=== PATIENT | female | born 1950 | race Caucasian/White ===

== ENCOUNTER 2020-01-20 00:33 | Outpatient (CLI) | payer MEDICARE, SELFPAY ==
[2020-01-20 19:01] LABS: SARS-CoV-2 RNA PCR Negative
== END 2020-01-20 00:34 | disposition home or self-care (01) ==
LOC: ANHCOVIDDT 00:36
PROVIDERS: PCP Internal Medicine; Visit Provider Internal Medicine Gastroenterology
DX: Z01.818 Encounter for other preprocedural examination (principal); Z11.59 Encounter for screening for other viral diseases
CPT/HCPCS: 87635; C9803; U0003

== ENCOUNTER 2020-01-22 03:43 | Day surgery (SDC) | payer MEDICARE, SELFPAY ==
[2020-01-15 10:49] VITALS: BMI 27.5
--- NOTE | 2020-01-22 08:10 | WPDANESEPPF ---
Anes - Initial Pre Proc Eval Procedure: Operation Date: 01/22/20 08:45 Proposed Procedures p Screening Colonoscopy - Quan Rivas MD Date/Time: 01/22/20 08:10 Surgeon: Quan Rivas MD Pre Op Diagnosis: Neoplasm Screening Patient Data Age: 70 Gender: F Height: 5 ft 1 in Weight: 66 kg Allergies Allergy/AdvReac Type Severity Reaction Status Date / Time Penicillins Allergy Mild Hives / Verified 01/22/20 08:10 Red Face Home Medications Medication Instructions Recorded Confirmed Type albuterol sulfate 90 mcg/actuation 1 inhalation INHALATION Q4H 12/31/19 01/15/20 History aerosol inhaler levothyroxine 50 mcg capsule 50 mcg PO DAILY 12/31/19 01/15/20 History zolmitriptan 5 mg tablet See Rx Instructions PO .COMPLEX 12/31/19 01/15/20 History peg 3350-electrolytes 236 240 ml PO Q10M #4000 ml 01/13/20 01/15/20 Rx gram-22.74 gram-6.74 gram-5.86 gram solution amitriptyline 25 mg PO DAILY 01/15/20 01/15/20 History Patient hx anesthesia problems: none Family hx anesthesia problems: none PMFSH Past Medical History Medical History Allergic rhinitis Anxiety Asthma Colon cancer screening Hypothyroid Major depressive disorder Migraine Noninfective gastroenteritis and colitis Osteoarthritis Senile cataract Thyrotoxicosis TIA (transient ischemic attack) Surgical History Surgical History (Updated 01/22/20 @ 08:12 by Baldemar Mcclelland MD) H/O: hysterectomy Anes - Eval Final PreProcedure Day of Procedure 01/22/20 08:10 Patient weight: overweight Heart: regular rate and rhythm Lungs: clear to auscultation Airway: Mallampati scale class II Neurological: alert and oriented Last oral intake: >/= 8 hours ASA classification: III Emergent: no Anesthetic plan: proceed Anesthesia type and monitoring: general GIVS and standard monitoring Informed Consent: The patient's anesthetic plan and its attendant risks and benefits were discussed with the patient/family/POA. Questions were solicited and answers provided to the satisfaction of the patient/family/POA.
[2020-01-22 08:11] VITALS: BMI 26.9
[2020-01-22] MEDS: LACTATED RINGERS 1,000 ML 150 ML IV CONT (08:24)
--- NOTE | 2020-01-22 08:25 | SUR.PREOP ---
pt notified of approx 20 min in delay start time.
--- NOTE | 2020-01-22 08:53 | WPDHPUPDATE1 ---
History and Physical Update Update Date/Time: 01/22/20 08:53 History and Physical has been reviewed, including an updated exam of the patient. There are NO changes in the patient's condition. Risks, benefits, and alternatives have been discussed and questions answered. Patient agrees to proceed with procedure.
[2020-01-22 09:34] VITALS: BP 116/69; PULSE 74; RESP 16; O2SAT 100
[2020-01-22 09:44] VITALS: BP 122/72; PULSE 75; RESP 20; O2SAT 98
[2020-01-22 09:54] VITALS: BP 133/70; PULSE 76; RESP 22; O2SAT 99
== END 2020-01-22 10:35 | disposition home or self-care (01) ==
PROVIDERS: PCP Internal Medicine; Visit Provider Internal Medicine Gastroenterology
PROC: 0DJD8ZZ Inspection of Lower Intestinal Tract, Via Natural or Artificial Opening Endoscopic (ICD-10-PCS; CPT 45378; principal; 2020-01-22 08:45)
DX: Z12.11 Encounter for screening for malignant neoplasm of colon (principal); D01.3 Carcinoma in situ of anus and anal canal; K64.4 Residual hemorrhoidal skin tags; K64.8 Other hemorrhoids; J45.909 Unspecified asthma, uncomplicated; E03.9 Hypothyroidism, unspecified; F41.8 Other specified anxiety disorders; Z86.73 Personal history of transient ischemic attack (TIA), and cerebral infarction without residual deficits
CPT/HCPCS: 45380; 87635; 88305; C9803; J2704; J7120; U0003

== ENCOUNTER 2020-04-20 11:25 | Emergency (ER) | payer MEDICARE, SELFPAY ==
[2020-04-20 11:35] VITALS: BP 97/54; PULSE 79; RESP 16; TEMP 36.8; O2SAT 97
--- NOTE | 2020-04-20 11:54 | ECG_ITS ---
Measurements Intervals [place] Rate: 75 P: 64 AR: 134 QRS: 3 QRSD: 78 T: 56 QT: 370 QTc: 414 Interpretive Statements SINUS RHYTHM NORMAL ECG Electronically Signed On 04-20-2020 12:47:05 CDT by Yo Johnson D.O.
--- NOTE | 2020-04-20 12:01 | ED.SYNCOPE ---
HPI - Syncope General Chief Complaint: Syncope Stated Complaint: CAT BITE Time Seen by Provider: 04/20/20 12:00 History of Present Illness HPI narrative: 70 yo female presents from home after being bitten by a cat. She was bitten on the left hand. Following the bite she breifly lost consiousness. She did not fall or sustain any additional injury. SHe has a h/o vasovagal syncope. Related Data Home Medications Medication Instructions Recorded Confirmed albuterol sulfate 90 mcg/actuation 1 inhalation INHALATION Q4H 12/31/19 01/29/20 aerosol inhaler levothyroxine 50 mcg capsule 50 mcg PO DAILY 12/31/19 01/29/20 zolmitriptan 5 mg tablet See Rx Instructions PO .COMPLEX 12/31/19 01/29/20 amitriptyline 25 mg PO DAILY 01/15/20 01/29/20 fexofenadine 60 mg tablet 60 mg PO Q12H 01/29/20 01/29/20 Allergies Allergy/AdvReac Type Severity Reaction Status Date / Time Penicillins Allergy Mild Hives / Verified 04/20/20 11:55 Red Face Review of Systems Review of Systems: All systems reviewed & are unremarkable except as noted in HPI and below Constitutional: Constitutional: Denies fever(s) and Denies weakness Cardiovascular: Cardiovascular: Denies chest pain Respiratory: Respiratory: Denies dyspnea Gastrointestinal: Gastrointestinal: Denies abdominal pain, Denies nausea and Denies vomiting Musculoskeletal: Musculoskeletal: Denies back pain Neurologic: Reports syncope, Denies numbness and Denies weakness [facility] Past Medical History Medical History Allergic rhinitis Anxiety Asthma Colon cancer screening Hypothyroid Major depressive disorder Migraine Noninfective gastroenteritis and colitis Osteoarthritis Senile cataract Stroke Thyrotoxicosis TIA (transient ischemic attack) Surgical History Surgical History H/O bilateral oophorectomy 1992 H/O removal of cyst H/O: hysterectomy 1989 Hx of tonsillectomy 1954 Family History Family History Other Alzheimer disease Heart disease Social History Social History Smoking status: Never smoker Alcohol intake: never Substance use: never Gender identity (if verbalized by the patient): Female Exam Const: General: healthy appearing, no acute distress and alert Orientation/consciousness: patient oriented x3 HENMT: Head: normal to inspection Neck: Neck: normal visual inspection and no lymphadenopathy Chest: Chest palpation & inspection: no tenderness Resp: Effort & Inspection: normal respiratory effort Auscultation: clear to auscultation bilaterally, no rales, no rhonchi and no wheezes Cardio: Jugular venous distension: no JVD Rate: regular rate Rhythm: regular rhythm Heart sounds: no murmurs GI: Inspection: non-distended GI Palp: Yes Soft to palpation and No Tenderness to palpation present (GI) Skin: Other: 2 cm laceration to the dorsum of left hand. 2 small punctures between second and third finger. Neuro: General: patient oriented x3 and moves all extremities Speech: normal speech Extrem: General: no edema Psych: Appearance: well kempt Affect: normal affect Course Vital Signs Vital signs: Vital Signs Temperature 36.8 C 04/20/20 11:35 Pulse Rate 79 04/20/20 11:35 Respiratory Rate 16 04/20/20 11:35 Blood Pressure 97/54 L 04/20/20 11:35 Pulse Oximetry 97 04/20/20 11:35 Temperature 36.8 C 04/20/20 11:35 Pulse Rate 78 04/20/20 13:36 Respiratory Rate 14 04/20/20 13:36 Blood Pressure 118/72 04/20/20 13:36 Pulse Oximetry 98 04/20/20 13:36 MDM - Syncope MDM Narrative Medical decision making narrative: Tetanus updated. will start on prophylaxis with doxycycline. She had a provoked syncopal episode. Feeling back to normal. No need for admission. Medical Records Atte
[2020-04-20 12:13] VITALS: BP 108/63; PULSE 82; RESP 17; O2SAT 98
[2020-04-20 12:26] LABS: Basophils Absolute Auto 0.1 K/mm3 (0.0-0.1); Basophils Percent Auto 0.9 % (0.2-1.2); Hematocrit 41.7 % (37.0-47.0); Hemoglobin 14.3 g/dL (12.0-15.0); Immature Granulocyte Absolute 0.03 K/mm3 (0.00-0.031); Immature Granulocyte Percent A 0.3 % (0-0.5); Lymphocytes Absolute Auto 2.61 K/mm3 (0.9-3.2); Lymphocytes Percent Auto 26.4 % (18.3-44.2); Mean Corpuscular HGB Conc 34.3 g/dl (32-36); Mean Corpuscular Hemoglobin 29.2 pg (26-34); Mean Corpuscular Volume 85.3 fl (80-100); Mean Platelet Volume 8.5 fl (7.4-10.4); Monocytes Absolute Auto 0.7 K/mm3 (0.1-0.6); Monocytes Percent Auto 6.6 % (2.6-8.5); Neutrophils Absolute Auto 5.5 K/mm3 (1.3-6.7); Neutrophils Percent Auto 55.8 % (45.5-73.1); Platelet Count Result 270 k/mm3 (150-375); Red Blood Count 4.89 M/mm3 (4.2-5.4); Red Cell Distribution Width 13.4 % (11.5-14.5); White Blood Count 9.9 K/mm3 (4.5-10.0)
[2020-04-20 12:39] LABS: Anion Gap 10 mmol/L (8-16); Blood Urea Nitrogen 8 mg/dL (7-17); Calcium 8.7 mg/dL (8.4-10.2); Carbon Dioxide 29 mmol/L (22-30); Chloride 100 mmol/L (98-107); Estimated CRCL calculation 51 ml/min; Estimated Glomerular Filt Rate > 60; Glucose 122 mg/dL (65-105); Potassium 4.3 mmol/L (3.4-5.0); Sodium 139 mmol/L (137-145)
[2020-04-20] MEDS: TETANUS,DIPHTHERIA,AC PERTUSSIS ADULT (0.5 ML) BOOSTRIX IM (12:46)
[2020-04-20] MEDS: DOXYCYCLINE HYCLATE 100 MG TABLET PO (13:35)
[2020-04-20 13:36] VITALS: BP 118/72; PULSE 78; RESP 14; O2SAT 98
== END 2020-04-20 13:38 | disposition home or self-care (01) ==
PROVIDERS: Emergency Medicine; Emergency Provider Emergency Medicine; PCP Internal Medicine
DX: S61.452A Open bite of left hand, initial encounter (principal); R55 Syncope and collapse; Z23 Encounter for immunization; W55.01XA Bitten by cat, initial encounter
CPT/HCPCS: 36415; 80048; 85025; 90471; 90715; 93005; 99284; A9270

== ENCOUNTER 2021-12-04 14:43 | Emergency (ER) | payer OTHER, MEDICARE, SELFPAY ==
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
--- NOTE | ~2021-12-04 | XR_ITS ---
XR hand LT 2V 12/04/2021 15:52 INDICATION: Left hand pain PROCEDURE: 2 views left hand COMPARISON: 04/19/2014 FINDINGS: Fracture, dislocation or subluxation is not identified. The soft tissues appear within norm al limits. No foreign bodies are identified. IMPRESSION: 1: NO ACUTE BONE OR JOINT ABNORMALITY IDENTIFIED. Reviewed, dictated and finalized at location A.
[2021-12-04 14:45] VITALS: BP 125/82; PULSE 96; RESP 16; TEMP 36.7; O2SAT 100
--- NOTE | 2021-12-04 15:31 | ECG_ITS ---
Measurements Intervals [place] Rate: 88 P: 65 ID: 138 QRS: 42 QRSD: 68 T: 40 QT: 337 QTc: 410 Interpretive Statements SINUS RHYTHM BASELINE ARTIFACT- I, III, AVL NORMAL ECG Electronically Signed On 12-04-2021 20:14:59 CDT by Yo Johnson D.O.
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
[2021-12-04 16:42] VITALS: BP 142/78; PULSE 76; RESP 18; O2SAT 98
== END 2021-12-04 16:42 | disposition home or self-care (01) ==
LOC: ANHED 16:13
PROVIDERS: Emergency Provider Emergency Medicine; PCP Internal Medicine
DX: S40.011A Contusion of right shoulder, initial encounter (principal); S60.222A Contusion of left hand, initial encounter; J45.909 Unspecified asthma, uncomplicated; E03.9 Hypothyroidism, unspecified; M19.90 Unspecified osteoarthritis, unspecified site; F32.9 Major depressive disorder, single episode, unspecified; F41.9 Anxiety disorder, unspecified; Z86.73 Personal history of transient ischemic attack (TIA), and cerebral infarction without residual deficits; V43.52XA Car driver injured in collision with other type car in traffic accident, initial encounter
CPT/HCPCS: 71045; 73120; 93005; 99283

== ENCOUNTER 2022-03-29 08:42 | Outpatient (CLI) | payer MEDICARE, SELFPAY ==
--- NOTE | ~2022-03-29 | MM_ITS ---
EXAMINATION: MM screening [facility] BI [facility] HISTORY: Screening mammogram TECHNIQUE: Craniocaudal and mediolateral oblique 3-D tomosynthesis images were obtained and synthetic 2-D images were generated. CAD analysis was submitted and interpreted. COMPARISON: 04/17/2019, 06/13/2017, 01/24/2016 BREAST PARENCHYMAL COMPOSITION: There are scattered areas of fibroglandular density. FINDINGS: There is stable architectural distortion in the right breast at the site of prior excisiona l biopsy. There is no suspicious mass, calcification, or architectural distortion to suggest malignan cy in either breast. There has been no suspicious interval change. IMPRESSION: 1. No mammographic evidence of malignancy. 2. Recommend routine screening mammography in one year. BI-RADS Category 2: Benign finding(s). Reviewed, dictated and finalized at location A.
--- NOTE | ~2022-03-29 | DEXA_ITS ---
Bone Density Report Name: TANIKA FOWLER Age: 72 Sex: Female Ethnicity: White Date of : 1950 Indication: osteopenia; height loss; cancer; asthma or emphysema; hysterectomy; postmenopausal Referring Provider: GEE MAC Study: Bone densitometry was performed. Exam Date: March 29, 2022 Accession number: [id number] Bone Density: Region BMD T-score Z-score Classification AP Spine(L1-L4) 0.818 -2.1 0.2 Osteopenia Femoral Neck (Left) 0.615 -2.1 -0.2 Osteopenia Total Hip (Left) 0.678 -2.2 -0.5 Osteopenia Femoral Neck (Right) 0.562 -2.6 -0.7 Osteoporosis Total Hip (Right) 0.639 -2.5 -0.9 Osteoporosis Total Hip Mean 0.659 -2.4 -0.7 Osteopenia World Health Organization criteria for BMD impression classify patients as: Normal (T-score at or above -1.0), Osteopenia (T-score between -1.0 and -2.5), or Osteoporosis (T-score at or below -2.5). 10-year Fracture Risk: FRAX not reported because: Some T-score for Spine Total or Hip Total or Femoral Neck at or below -2.5 Previous Exams: Region Exam Age BMD T-score BMD Change BMD Change Date g/cm2 vs Baseline vs Previous AP Spine (L1-L4) 03/29/2022 72 0.818 -2.1 0.008 (1.0%)# -0.019 (-2.2%) 04/17/2019 69 0.837 -1.9 0.027 (3.3%)* 0.115 (15.9%)* 01/24/2016 66 0.722 -3.0 -0.088 (-10.9% -0.088 (-10.9% 12/15/2013 63 0.810 -2.2 Total Hip(Left) 03/29/2022 72 0.678 -2.2 -0.113 (-14.2% -0.118 (-14.8% 04/17/2019 69 0.796 -1.2 0.006 (0.7%) 0.007 (0.9%) 01/24/2016 66 0.789 -1.3 -0.002 (-0.2%) -0.002 (-0.2%) 12/15/2013 63 0.790 -1.2 Total Hip(Right) 03/29/2022 72 0.639 -2.5 -0.059 (-8.5%) -0.117 (-15.5% 04/17/2019 69 0.757 -1.5 0.058 (8.3%)* -0.020 (-2.6%) 01/24/2016 66 0.777 -1.4 0.078 (11.2%)* 0.078 (11.2%)* 12/15/2013 63 0.699 -2.0 *Denotes significance at 95% confidence level, LSC for AP Spine = 0.022 g/cm2, LSC for Total Hip = 0.027 g/cm2 # Denotes dissimilar scan types or analysis methods Clinical Information Provided by Patient: Has the following medical conditions: Asthma or Emphysema, Cancer, Hysterectomy Patient maximum height was 63 Menopause Age: 40 No regular weight bearing exercise Onset of menses at age 13 Number of children 0 Impression: The patient has osteoporosis, based on the Right Femoral Neck T-score. No significant bone loss was observed. Discussion: INCREASED RISK OF FRACTURE. BONE DENSITY IS
== END 2022-03-29 08:43 | disposition home or self-care (01) ==
PROVIDERS: PCP Internal Medicine; Visit Provider Obstetrics & Gynecology Gynecology
DX: Z12.31 Encounter for screening mammogram for malignant neoplasm of breast (principal); Z78.0 Asymptomatic menopausal state; M85.88 Other specified disorders of bone density and structure, other site; M85.851 Other specified disorders of bone density and structure, right thigh; M85.852 Other specified disorders of bone density and structure, left thigh
CPT/HCPCS: 77063; 77067; 77080